=== PATIENT | male | born 1935 | race Two or more races ===

== ENCOUNTER 2017-04-03 20:49 | Emergency (ER) | payer MEDICARE, BC ==
[2017-04-03 23:12] VITALS: BP 154/104; PULSE 75; RESP 18; O2SAT 95
== END 2017-04-03 21:20 | disposition short-term general hospital (02) | DRG 65 ==
LOC: ED 20:49
DX: I63.9 Cerebral infarction, unspecified (principal); G81.91 Hemiplegia, unspecified affecting right dominant side; R29.810 Facial weakness; R29.721 NIHSS score 21
CPT/HCPCS: 70450; 99284; 99291